=== PATIENT | male | born 1995 | race Caucasian/White ===

== ENCOUNTER 2017-02-19 00:41 | Emergency (ER) | payer OTHER ==
[~2017-02-19] VITALS: Ht 177.8 cm; Wt 65.0 kg
[~2017-02-19 00:41] MED LIST: IBUP800T23 PO; ROBA750T PO
[2017-02-19 00:50] VITALS: BP 135/73; PULSE 90; RESP 18; TEMP 98; O2SAT 99
--- NOTE | 2017-02-19 02:09 | RADRPT ---
EXAM DATE/TIME: 02/19/2017 01:23 [place] COMPARISON: HAND RIGHT COMPLETE ([id number]), November 05, 2006, 12:38. INDICATIONS : Right hand pain. MEDICAL HISTORY : None. SURGICAL HISTORY : None. ENCOUNTER: Initial ACUITY: 1 day PAIN SCORE: 6/10 LOCATION: Right hand FINDINGS: Three view examination of the right hand demonstrates no soft tissue swelling, dislocation, or fractu re. The carpal bones appear intact. The interphalangeal and metacarpophalangeal joints are intact. Bony mineralization is normal. CONCLUSION: Normal radiographic appearance of the right hand. Wiley Adler MD on February 19, 2017 at 2:07 Board Certified Radiologist. This report was verified electronically.
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
== END 2017-02-19 02:22 ==
LOC: NEPC 00:41
DX: S60.221A Contusion of right hand, initial encounter (principal); Z72.0 Tobacco use; Y00.XXXA Assault by blunt object, initial encounter; Y93.9 Activity, unspecified; Y92.9 Unspecified place or not applicable; Y99.8 Other external cause status
CPT/HCPCS: 73130; 99283

== ENCOUNTER 2017-05-23 17:58 | Emergency (ER) | payer SELFPAY ==
[~2017-05-23] VITALS: Ht 177.8 cm; Wt 60.0 kg
[~2017-05-23 17:58] MED LIST changes: -ROBA750T PO
[2017-05-23 18:00] VITALS: BP 144/93; PULSE 95; RESP 20; TEMP 97.6; O2SAT 100
--- NOTE | 2017-05-23 19:32 | PD ---
HPI Chief Complaint: Laceration/Skin Injury Time Seen by Provider: 19:25 Travel History International Travel<30 days: No Contact w/Intl Traveler<30days: No Traveled to known affect area: No History of Present Illness HPI 22-year-old male here for a laceration of his left mid forearm after cutting some wood with a chainsaw 2 hours ago. He states that his girlfriend wanted him to come to the emergency department for an evaluation and treatment if necessary. He denies any numbness tingling of the arm or fingers. States he has full range of motion of the arm and denies any other issues pertaining to this incident. History Social History Alcohol Use: Yes (occasional ) Tobacco Use: Yes Allergies-Medications (Allergen,Severity, Reaction): Coded Allergies: No Known Allergies (Unverified , 05/23/17) Reported Meds & Prescriptions Reported Meds & Active Scripts Active Ibuprofen 800 Mg Tab 800 Mg PO TID PRN Physical Exam Narrative GENERAL: Well-nourished, well-developed patient. SKIN: Focused skin assessment. Left upper forearm 1.5 cm linear laceration without gross contamination. Muscular fascia was visible but intact. Wound edges approximate well without excessive tension. HEAD: Normocephalic. EYES: No scleral icterus. No injection or drainage. CARDIOVASCULAR: Regular rate and rhythm without murmurs, gallops, or rubs. RESPIRATORY: Breath sounds equal bilaterally. No accessory muscle use. MUSCULOSKELETAL: No cyanosis, or edema. Left forearm with full range of motion grade 5/5 strength. BACK: Nontender without obvious deformity. No CVA tenderness. Data Data Last Documented VS Vital Signs Date Time Temp Pulse Resp B/P (MAP) Pulse Ox O2 Delivery O2 Flow Rate FiO2 05/23/17 18:00 97.6 95 20 144/93 (110) 100 Room Air [facility] Medical Screen Exam Complete: Yes Emergency Medical Condition: No Differential Diagnosis Superficial laceration of left forearm Narrative Course 22-year-old white male with a 1.5 cm linear laceration to left forearm without gross contamination. He denies significant pain or bleeding, motor, neuro or sensory deficits. The wound was explored lightly for gross contamination and found to be clear. The remaining physical exam findings were unremarkable. he states that he received his tetanus vaccine less than 5 years ago. He was advised to return to his primary care for evaluation and follow-up. A medical screening exam was performed: At the time of evaluation the presenting medical condition was determined not to be of an emergent nature. The patient was given the option of receiving additional care, but declined. Patient was given options for additional community resources from which to obtain care. The Patient Has Been advised to seek medical attention for their presenting complaint. The patient has been advised to return to the ER at any time if an emergent condition develops. Primary Impression: Encounter for medical screening examination Condition: Stable Juli Schumacher May 23, 2017 19:32
== END 2017-05-23 19:37 | disposition left against medical advice (07) ==
LOC: NEPD 17:58
DX: S51.812A Laceration without foreign body of left forearm, initial encounter (principal); W29.3XXA Contact with powered garden and outdoor hand tools and machinery, initial encounter
CPT/HCPCS: 99281